=== PATIENT | male | born 1970 | race Caucasian/White ===

== ENCOUNTER 2020-04-03 09:34 | Outpatient (CLI) | payer OTHER, SELFPAY ==
[2020-04-03 09:57] LABS: Basophils Absolute Auto 0.1 K/mm3 (0.0-0.1); Basophils Percent Auto 0.7 % (0.2-1.2); Eosinophils Absolute Auto 0.1 K/mm3 (0-0.3); Eosinophils Percent Auto 1.3 % (0-4.4); Hematocrit 47.9 % (42.0-52.0); Hemoglobin 16.1 g/dL (14.0-18.0); Immature Granulocyte Absolute 0.03 K/mm3 (0.00-0.031); Immature Granulocyte Percent A 0.3 % (0-0.5); Lymphocytes Absolute Auto 1.91 K/mm3 (0.9-3.2); Lymphocytes Percent Auto 19.9 % (18.3-44.2); Mean Corpuscular HGB Conc 33.6 g/dl (32-36); Mean Corpuscular Hemoglobin 29.3 pg (26-34); Mean Corpuscular Volume 87.1 fl (80-100); Mean Platelet Volume 9.5 fl (7.4-10.4); Monocytes Absolute Auto 0.8 K/mm3 (0.1-0.6); Monocytes Percent Auto 8.1 % (2.6-8.5); Neutrophils Absolute Auto 6.7 K/mm3 (1.3-6.7); Neutrophils Percent Auto 69.7 % (45.5-73.1); Platelet Count Result 274 k/mm3 (150-375); White Blood Count 9.6 K/mm3 (4.5-10.0)
[2020-04-03 10:06] LABS: Hemoglobin A1C 5.4 % (<5.7)
[2020-04-03 10:08] LABS: Alanine Aminotransferase 46 U/L (4-50); Albumin Level 4.8 g/dL (3.5-5.1); Alkaline Phosphatase 77 U/L (38-126); Anion Gap 8 mmol/L (8-16); Aspartate Amino Transferase 29 U/L (17-59); Bilirubin,Total 0.6 mg/dL (0.2-1.3); Blood Urea Nitrogen 23 mg/dL (9-20); Calcium 9.4 mg/dL (8.4-10.2); Carbon Dioxide 23 mmol/L (22-30); Chloride 105 mmol/L (98-107); Cholesterol 224 mg/dL (0-200); Estimated Glomerular Filt Rate > 60; Glucose 125 mg/dL (75-110); HDL Direct 51 mg/dL; Potassium 4.4 mmol/L (3.4-5.0); Sodium 136 mmol/L (137-145); Triglycerides 134 mg/dL (<150)
[2020-04-03 10:11] LABS: Add Urine Microscopic? YES; Appearance Urine Clear (Clear); Bilirubin Urine Negative (Negative); Blood Urine Negative (Negative); Color Urine Yellow (Yellow); Glucose Urine UA Negative (Negative); Ketones Urine Negative (Negative); Leukocyte Esterase Ur Negative LEU/UL (NEGATIVE); Mucus Urine Rare /lpf; Nitrate Urine Negative (Negative); Protein Urine 1+ mg/dL (Negative); RBC Urine 0-2 /hpf (0-2); Specific Grav Ur 1.027 (1.001-1.035); Urobilinogen Urine Negative mg/dL (<2.0); WBC Urine 0-3 /hpf (0-3)
[2020-04-03 10:19] LABS: LDL Cholesterol Direct 142 mg/dL
[2020-04-03 10:37] LABS: Free T4 Free Thyroxine 1.11 ng/mL (0.78-2.19); Vitamin D 25 Hydroxy 46.8 ng/mL
[2020-04-03 10:39] LABS: Prostate Specific Antigen 0.6 ng/mL (< OR = 4.0)
[2020-04-08 04:12] LABS: Insulin Level Total 13.4 uIU/mL (<=19.6)
[2020-04-10 12:55] LABS: Homocysteine 10.4 umol/L (<11.4)
[2020-04-11 05:24] LABS: C-Peptide 2.11 ng/mL (0.80-3.85)
== END 2020-04-03 09:35 | disposition home or self-care (01) ==
LOC: ANHLAB 09:37
PROVIDERS: PCP Internal Medicine; Visit Provider Internal Medicine
DX: G47.33 Obstructive sleep apnea (adult) (pediatric) (principal); I10 Essential (primary) hypertension; Z79.899 Other long term (current) drug therapy; Z80.42 Family history of malignant neoplasm of prostate
CPT/HCPCS: 36415; 80053; 80061; 81001; 82306; 83036; 83090; 83525; 84153; 84439; 84443; 84681; 85025; G0103

== ENCOUNTER 2020-04-23 00:23 | Outpatient (CLI) | payer OTHER, SELFPAY ==
[2020-04-23 19:00] LABS: SARS-CoV-2 RNA PCR Negative
== END 2020-04-23 00:24 | disposition home or self-care (01) ==
LOC: ANHCOVIDDT 00:24
PROVIDERS: PCP Internal Medicine; Visit Provider Surgery
DX: Z01.812 Encounter for preprocedural laboratory examination (principal); Z20.828 Contact with and (suspected) exposure to other viral communicable diseases
CPT/HCPCS: 87635; C9803; U0003

== ENCOUNTER 2020-04-23 07:38 | Outpatient (CLI) | payer OTHER, SELFPAY ==
--- NOTE | 2020-04-23 08:28 | ECG_ITS ---
Measurements Intervals [place] Rate: 64 P: 0 ID: 168 QRS: -7 QRSD: 105 T: 1 QT: 417 QTc: 431 Interpretive Statements SINUS RHYTHM VOLTAGE CRITERIA FOR LVH BORDERLINE T WAVE ABNORMALITY- INFERIOR LEADS BASELINE ARTIFACT- I, III, AVL BORDERLINE ECG Electronically Signed On 04-23-2020 9:19:17 CDT by Roderick Quan D.O.
== END 2020-04-23 07:39 | disposition home or self-care (01) ==
PROVIDERS: PCP Internal Medicine; Visit Provider Surgery
DX: Z01.812 Encounter for preprocedural laboratory examination (principal); K43.6 Other and unspecified ventral hernia with obstruction, without gangrene; I10 Essential (primary) hypertension; R94.31 Abnormal electrocardiogram [ECG] [EKG]
CPT/HCPCS: 36415; 86850; 86900; 86901; 93005

== ENCOUNTER 2020-04-25 00:15 | Day surgery (SDC) | payer OTHER, SELFPAY ==
[2020-04-16 11:02] VITALS: BMI 37.3
[2020-04-25] VITALS (12 sets, daily range): BP systolic 111–153; BP diastolic 67–104; PULSE 61–86; RESP 10–20; TEMP 35.8–36.3; O2SAT 92–98
[2020-04-25] MEDS: LACTATED RINGERS 1,000 ML 30 ML IV CONT ×2 (06:40→09:35)
[2020-04-25] MEDS: KETOROLAC 15 MG/ML VIAL (*BKC) IV PUSH ×2 (06:45→10:39)
[2020-04-25] MEDS: ACETAMINOPHEN 500 MG TABLET 1000 MG PO (06:45)
--- NOTE | 2020-04-25 07:09 | WPDANESEPPF ---
Anes - Initial Pre Proc Eval Procedure: Operation Date: 04/25/20 07:30 Proposed Procedures p Robotic Assisted Laparoscopic Periumbilical Ventral Hernia Repair with Mesh - Rebekah Castillo MD Date/Time: 04/25/20 07:09 Surgeon: Rebekah Castillo MD Pre Op Diagnosis: incarcerated dexter umbilical ventral hernia Patient Data Age: 49 Gender: M Height: 5 ft 10 in Weight: 117.93 kg Allergies Allergy/AdvReac Type Severity Reaction Status Date / Time No Known Allergies Allergy Verified 04/16/20 11:03 Home Medications Medication Instructions Recorded Confirmed Type amlodipine 10 mg tablet 10 mg PO DAILY #30 tablet 10/24/19 04/16/20 Rx cetirizine 10 mg disintegrating 10 mg PO DAILY 04/03/20 04/16/20 History tablet fluticasone propionate 50 1 spray NASAL DAILY 04/03/20 04/16/20 History mcg/actuation nasal spray,suspension losartan 50 mg tablet 50 mg PO DAILY #30 tablet 04/03/20 04/16/20 Rx meloxicam 15 mg tablet 15 mg PO BID #60 tablet 04/03/20 04/16/20 Rx rosuvastatin 40 mg tablet 40 mg PO DAILY #30 tablet 04/03/20 04/16/20 Rx Patient hx anesthesia problems: none Family hx anesthesia problems: none PMFSH Past Medical History Medical History (Updated 04/24/20 @ 13:19 by Krzysztof Gibson MD) Benign essential hypertension History of high cholesterol Obstructive sleep apnea Surgical History Surgical History Status post medial meniscal repair Status post repair of hydrocele Family History Family History Father Hypertension Malignant neoplasm of prostate, Onset Age: 70 Sibling Patient's brother is in good health Mother Family history of malignant neoplasm of urinary bladder Social History Social History Smoking status: Never smoker Alcohol intake: current Drinks per week: 7 Additional occupation/education comments: [employer] Spiritual care concerns: No Anes - Eval Final PreProcedure Day of Procedure 04/25/20 07:09 Patient weight: obese Heart: regular rate and rhythm Lungs: clear to auscultation Airway: Mallampati scale (will use glidescope) class III Neurological: alert and oriented Last oral intake: >/= 8 hours ASA classification: III Emergent: no Anesthetic plan: proceed Anesthesia type and monitoring: general ETT and standard monitoring Informed Consent: The patient's anesthetic plan and its attendant risks and benefits were discussed with the patient/family/POA. Questions were solicited and answers provided to the satisfaction of the patient/family/POA.
--- NOTE | 2020-04-25 07:23 | WPDHPUPDATE1 ---
History and Physical Update Update Date/Time: 04/25/20 07:23 History and Physical has been reviewed, including an updated exam of the patient. There are NO changes in the patient's condition. Risks, benefits, and alternatives have been discussed and questions answered. Patient agrees to proceed with procedure.
[2020-04-25] MEDS: ceFAZolin 2 GM/D5W 50 ML 2 GM/50 ML BAG IVPB (07:29)
[2020-04-25] MEDS: BUPIVACAINE/EPINEPHRINE 0.5% 10 ML VIAL 30 ML INFILTRATE (08:14)
--- NOTE | 2020-04-25 09:27 | PM.PROC ---
Procedure Note - Detailed Date of procedure: 04/25/20 Pre-op diagnosis: incarcerated dexter umbilical ventral hernia incarcerated periumbilical ventral hernia Post-op diagnosis: same Procedure performed: robotic assisted repair of incarcerated periumbilical ventral hernia with 15 x 10 cm symbotex mesh in underlay position Description of procedure: The patient was taken the operating room placed in the supine position. After adequate induction of general anesthesia, the patient was prepped and draped in normal sterile fashion. A time-out was then done to verify the patient's identity as well as the procedure being performed. I began by making a 5 mm incision in the left upper quadrant. Through this, a Veress needle was placed into the peritoneal cavity and CO2 gas was insufflated. After adequate pneumoperitoneum was achieved, a 5 mm trocar was placed through this incision. I then placed the laparoscope through this trocar site and under direct visualization I placed a 8 mm port in the left mid abdomen as well as an additional 8 mm port in the left lower abdomen. I then moved the camera to the lower port and replaced the 5 mm port with a 12 mm airport. The robot was then docked to the 3 port sites. I then went to the robotic console. I began by identifying the hernia. A moderate-sized incarcerated hernia was noted in the periumbilical region. Using graspers, I was able to reduce this hernia. The hernia was noted to just contain preperitoneal fat. Once reduced, I also reduced and dissected out the hernia sac. I then closed the approximately 5 cm defect with 0 strata fix suture. I then placed a 15 x 10 cm symbotex mesh into the abdominal cavity. The Vicryl stitch was placed in the middle of the mesh and brought up centering the mesh over the defect. Once this was done, I used 2 0 V lock suture x 2 to circumferentially suture the mesh to the abdominal. Once the mesh was completely sutured in, I was happy with our tension-free repair. The mesh was noted to have good overlap of the defect. At this point, the robot was undocked and all ports were removed. I then closed the 12 mm port site with an 0 Vicryl [id number] suture at the fascial level. All port sites were then closed with 4 O Monocryl subcuticular suture. The patient tolerated the procedure well, is extubated in the operating room postoperative, and will be transferred to the recovery room in stable condition. Anesthesia: GETA Surgeon: Rebekah Castillo MD Estimated blood loss (mL): 10 Drains: No Packing: No Pathology: none sent Complications: No immediate complications Condition: stable Disposition: PACU Findings: incarcerated periumbilical ventral hernia containing fat
[2020-04-25] MEDS: HYDROmorphone HCL INJ (*CRX) 1 MG/ML SYR 0.5 MG IV PUSH ×3 (09:54→10:29)
--- NOTE | 2020-04-25 10:08 | SUR.PHASEI ---
1008- Notified Dr. Gibson patient's blood pressure elevated 150/104 with HR 72. Orders to give 5MG labetalol once IVP and repeat x1 if needed.
[2020-04-25] MEDS: LABETALOL HCL INJ 100 MG/20 ML VIAL IV PUSH (10:23)
--- NOTE | 2020-04-25 10:37 | SUR.PHASEI ---
1037- Called and made Dr. Gibson aware patient has been given 2MG Dilaudid and requiring oxygen 3 liters via nasal cannula and complaining of pain 7/10 on numeric scale. Received orders for 15MG toradol IVP once.
[2020-04-25] MEDS: fentaNYL CITRATE INJ (*CRX) 100 MCG/2 ML VIAL 25 MCG IV PUSH ×10 (11:04→11:22)
[2020-04-25] MEDS: oxyCODONE HCL (*CRX) 5 MG TAB IR PO (11:30)
== END 2020-04-25 12:12 | disposition home or self-care (01) ==
PROVIDERS: PCP Internal Medicine; Visit Provider Surgery
PROC: (CPT 49653; principal; 2020-04-25 07:30)
DX: K43.6 Other and unspecified ventral hernia with obstruction, without gangrene (principal); I10 Essential (primary) hypertension; E78.00 Pure hypercholesterolemia, unspecified; G47.33 Obstructive sleep apnea (adult) (pediatric); E66.9 Obesity, unspecified; Z68.36 Body mass index [BMI] 36.0-36.9, adult
CPT/HCPCS: 49653; S2900; A9270; C1781; J0330; J0690; J1100; J1170; J1885; J2250; J2405; J2704; J2710; J3010; J7030; J7120

== ENCOUNTER → 2020-06-03 15:17 | Outpatient (CLI) | payer OTHER, SELFPAY ==
--- NOTE | ~2020-06-03 | XR_ITS ---
EXAMINATION: XR knee LT min 4V DATE: 06/03/2020 15:44 INDICATION: Left knee pain. TECHNIQUE: 4 views of left knee were obtained. COMPARISON: Left knee radiographs 09/22/2018 FINDINGS: Bone alignment is normal. No fracture. There is mild tricompartmental osteoarthritis. No kn ee joint effusion. IMPRESSION: 1. Mild left knee osteoarthritis. Reviewed, dictated and finalized at location A. MIRROR DEPARTMENT SUPERVISOR
== END ==
PROVIDERS: Visit Provider Internal Medicine
DX: M17.12 Unilateral primary osteoarthritis, left knee (principal)
CPT/HCPCS: 73564

== ENCOUNTER 2020-06-11 07:44 | Outpatient (CLI) | payer SELFPAY ==
--- NOTE | ~2020-06-11 | MR_ITS ---
EXAMINATION: MR knee LT wo/w con DATE: 06/11/2020 09:16 INDICATION: Left knee pain. TECHNIQUE: Magnetic resonance imaging (MRI) of the left knee was performed without intravenous contra st. Sequences included axial PD-weighted FS FSE, coronal PD-weighted FSE and PD-weighted FS FSE, sagi ttal PD-weighted FSE, and sagittal T2-weighted FS FSE. COMPARISON: Left knee radiographs 06/03/2020 FINDINGS: Medial compartment: There is a complex tear of medial meniscus at the junction of the body and posterior horn. There is d eep partial thickness cartilage loss of tibial condyle involving the anterior and medial articular rosas rface with mild subchondral edema-like marrow signal intensity. There is deep partial thickness carti kate loss of femoral condyle involving the posterior articular surface. There is extensive shallow pa rtial-thickness cartilage loss of tibial condyle and femoral condyle. Marginal osteophytes are noted. Lateral compartment: The lateral meniscus is normal. There is deep partial thickness cartilage loss of femoral condyle inv olving the central articular surface. There is cartilage surface irregularity of tibial condyle. Anushka inal osteophytes are noted. Patellofemoral compartment: There is shallow partial-thickness cartilage loss of patellar medial facet and median ridge. There is deep partial thickness cartilage loss of medial trochlea with mild subchondral edema-like marrow sig nal intensity. There is shallow partial-thickness cartilage loss of central and lateral trochlea. Ligaments and tendons: The anterior and posterior cruciate ligaments are normal. There are changes of prior sprains of media l collateral ligament and fibular collateral ligament characterized by thickening and increased signa l intensity proximally. There is mild patellar tendinopathy. Fluid: There is a small knee joint effusion. There is mild deep infrapatellar bursitis. There are ganglion c ysts in Hoffa's fat pad. There is mild prepatellar and superficial infrapatellar bursitis. IMPRESSION: 1. Moderate tricompartmental chondrosis. 2. Tear of medial meniscus. 3. Small knee joint effusion. Reviewed, dictated and finalized at location A. ONAL ACCOUNT MANAGER
[2020-06-11 08:29] LABS: Estimated Glomerular Filt Rate > 60
== END 2020-06-11 07:45 | disposition home or self-care (01) ==
PROVIDERS: PCP Internal Medicine; Visit Provider Internal Medicine
DX: S83.242A Other tear of medial meniscus, current injury, left knee, initial encounter (principal); M25.462 Effusion, left knee
CPT/HCPCS: 73723; A9577

== ENCOUNTER 2021-03-13 11:15 | Outpatient (CLI) | payer OTHER, SELFPAY ==
[2021-03-13 12:05] LABS: Basophils Absolute Auto 0.1 K/mm3 (0.0-0.1); Basophils Percent Auto 0.7 % (0.2-1.2); Eosinophils Absolute Auto 0.2 K/mm3 (0-0.3); Eosinophils Percent Auto 1.8 % (0-4.4); Hemoglobin 14.7 g/dL (14.0-18.0); Immature Granulocyte Absolute 0.02 K/mm3 (0.00-0.031); Immature Granulocyte Percent A 0.2 % (0-0.5); Lymphocytes Absolute Auto 1.94 K/mm3 (0.9-3.2); Lymphocytes Percent Auto 23.2 % (18.3-44.2); Mean Corpuscular HGB Conc 33.4 g/dl (32-36); Mean Corpuscular Hemoglobin 29.1 pg (26-34); Mean Platelet Volume 9.5 fl (7.4-10.4); Monocytes Absolute Auto 0.6 K/mm3 (0.1-0.6); Monocytes Percent Auto 7.5 % (2.6-8.5); Neutrophils Absolute Auto 5.6 K/mm3 (1.3-6.7); Neutrophils Percent Auto 66.6 % (45.5-73.1); Platelet Count Result 282 k/mm3 (150-375); Red Blood Count 5.06 M/mm3 (4.6-6.20); White Blood Count 8.4 K/mm3 (4.5-10.0)
[2021-03-13 12:23] LABS: Alanine Aminotransferase 48 U/L (4-50); Albumin Level 4.8 g/dL (3.5-5.1); Alkaline Phosphatase 68 U/L (38-126); Anion Gap 15 mmol/L (8-16); Aspartate Amino Transferase 33 U/L (17-59); Bilirubin,Total 0.3 mg/dL (0.2-1.3); Blood Urea Nitrogen 12 mg/dL (9-20); Calcium 9.6 mg/dL (8.4-10.2); Carbon Dioxide 24 mmol/L (22-30); Chloride 103 mmol/L (98-107); Cholesterol 171 mg/dL (0-200); Estimated Glomerular Filt Rate > 60; Glucose 108 mg/dL (65-110); HDL Direct 49 mg/dL; Potassium 4.2 mmol/L (3.4-5.0); Sodium 142 mmol/L (137-145); Triglycerides 146 mg/dL (<150)
[2021-03-13 12:34] LABS: LDL Cholesterol Direct 89 mg/dL
[2021-03-13 13:31] LABS: Hemoglobin A1C 5.6 % (<5.7)
[2021-03-13 13:35] LABS: Free T4 Free Thyroxine 1.08 ng/mL (0.78-2.19); Vitamin D 25 Hydroxy 77.7 ng/mL
[2021-03-15 04:33] LABS: Insulin Level Total 10.6 uIU/mL (<=19.6)
[2021-03-15 08:10] LABS: C-Peptide 2.22 ng/mL (0.80-3.85)
== END 2021-03-13 11:16 | disposition home or self-care (01) ==
PROVIDERS: PCP Internal Medicine; Visit Provider Internal Medicine
DX: I10 Essential (primary) hypertension (principal); E78.2 Mixed hyperlipidemia; E55.9 Vitamin D deficiency, unspecified; E66.9 Obesity, unspecified; Z79.899 Other long term (current) drug therapy
CPT/HCPCS: 36415; 80053; 80061; 82306; 83036; 83525; 84439; 84443; 84681; 85025

== ENCOUNTER 2021-07-09 16:17 | Outpatient (CLI) | payer OTHER, SELFPAY ==
[2021-07-09 17:41] LABS: CRP 4.5 mg/dL (<1.0)
[2021-07-09 17:59] LABS: Erythrocyte Sedimentation Rate 6 mm/hr (0-20)
[2021-07-13 17:32] LABS: Complement Total CH50 >60 U/mL (31-60)
== END 2021-07-09 16:18 | disposition home or self-care (01) ==
LOC: ANHLAB 16:20
PROVIDERS: PCP Internal Medicine; Visit Provider Internal Medicine
DX: L50.9 Urticaria, unspecified (principal)
CPT/HCPCS: 36415; 85652; 86003; 86140; 86162

== ENCOUNTER 2021-08-18 12:21 | Outpatient (CLI) | payer OTHER, SELFPAY ==
[2021-08-18 13:29] LABS: Alanine Aminotransferase 21 U/L (4-50); Albumin Level 4.8 g/dL (3.5-5.1); Alkaline Phosphatase 68 U/L (38-126); Anion Gap 9 mmol/L (8-16); Aspartate Amino Transferase 23 U/L (17-59); Bilirubin,Total 0.5 mg/dL (0.2-1.3); Blood Urea Nitrogen 14 mg/dL (9-20); Calcium 9.5 mg/dL (8.4-10.2); Carbon Dioxide 24 mmol/L (22-30); Chloride 101 mmol/L (98-107); Cholesterol 151 mg/dL (0-200); Estimated Glomerular Filt Rate > 60; Glucose 91 mg/dL (65-110); HDL Direct 42 mg/dL; Potassium 4.3 mmol/L (3.4-5.0); Sodium 134 mmol/L (137-145); Triglycerides 108 mg/dL (<150)
[2021-08-18 13:37] LABS: Hemoglobin A1C 4.7 % (<5.7)
[2021-08-18 13:40] LABS: LDL Cholesterol Direct 82 mg/dL
[2021-08-18 13:54] LABS: Prostate Specific Antigen 0.7 ng/mL (< OR = 4.0)
[2021-08-18 14:19] LABS: Free T4 Free Thyroxine 1.12 ng/mL (0.78-2.19)
== END 2021-08-18 12:22 | disposition home or self-care (01) ==
LOC: ANHLAB 12:23
PROVIDERS: PCP Internal Medicine; Visit Provider Internal Medicine
DX: Z12.5 Encounter for screening for malignant neoplasm of prostate (principal); I10 Essential (primary) hypertension; Z80.42 Family history of malignant neoplasm of prostate; Z79.899 Other long term (current) drug therapy; E78.2 Mixed hyperlipidemia
CPT/HCPCS: 36415; 80053; 80061; 83036; 84153; 84439; 84443; G0103

== ENCOUNTER → 2021-08-28 13:27 | Outpatient (CLI) | payer OTHER, SELFPAY ==
--- NOTE | ~2021-08-28 | CT_ITS ---
EXAMINATION: CT abdomen pelvis wo con DATE: 08/28/2021 13:51 INDICATION: Incisional hernia. Umbilical pain. TECHNIQUE: Computed tomography (CT) of the abdomen and pelvis was performed without intravenous contr ast. Automated exposure control and iterative reconstruction technique were employed. Exam dose: 101 0.44 mGy-cm total exam DLP. COMPARISON: None. FINDINGS: The lung bases are clear. Normal heart size. There is coronary artery calcification. No pericardial or pleural effusion. The liver, gallbladder, bile ducts, pancreas, pancreatic duct, spleen, adrenal glands and kidneys are unremarkable. Normal caliber of the abdominal aorta. No intraperitoneal or retroperitoneal or pelvic mass lesion or adenopathy or ascites. Normal appendix. There are scattered diverticula of the left and transverse colon; no CT evidence of diverticulitis. No bowel obstruction, bowel wall thickening, pneumatosis or intraperitoneal free air. The prostate gland is moderately prominent in size. There is moderate diffuse thickening of the urin josé miguel bladder wall. There is a small but widemouth umbilical hernia containing nonobstructed non strangulated loop of sma ll bowel. There is severe degenerative disease and grade 2 anterolisthesis at L5-S1 with associated bilateral L 5 pars interarticularis defects. Diffuse idiopathic skeletal hyperostosis of the lower thoracic and upper lumbar spine. Approximately 6.5 mm osteosclerotic focus of L3 vertebral body, most likely a bone island. Osteoscler otic metastasis as with prostate malignancy is less likely. IMPRESSION: Small widemouth umbilical hernia containing loop of small bowel without strangulation or obstruction Prostate enlargement and moderate thickening of the urinary bladder wall Mild diverticulosis of the colon; no CT evidence of diverticulitis Reviewed, dictated and finalized at Location A. Reviewed, dictated and finalized at location B. ARTIST APPRENTICE IMPRESSION: Small widemouth umbilical hernia containing loop of small bowel wit hout strangulation or obstruction Prostate enlargement and moderate thickening of the urinary bladder wall Mild diverticulosis of the colon; no CT evidence of diverticulitis
== END ==
PROVIDERS: Visit Provider Surgery
DX: K43.2 Incisional hernia without obstruction or gangrene (principal); K42.9 Umbilical hernia without obstruction or gangrene; N40.0 Benign prostatic hyperplasia without lower urinary tract symptoms; N32.9 Bladder disorder, unspecified; K57.90 Diverticulosis of intestine, part unspecified, without perforation or abscess without bleeding
CPT/HCPCS: 74176

== ENCOUNTER 2021-09-16 07:54 | Outpatient (CLI) | payer OTHER, SELFPAY ==
--- NOTE | 2021-09-16 08:02 | ECG_ITS ---
Measurements Intervals [place] Rate: 74 P: 13 NE: 165 QRS: -12 QRSD: 108 T: 4 QT: 395 QTc: 441 Interpretive Statements SINUS RHYTHM COMPARED TO ECG 04/23/2020 08:35:09 NO SIGNIFICANT CHANGES Electronically Signed On 09-16-2021 9:45:58 MATERIALS AND CORROSION ENGINEER by Lopez Medrano M.D.
== END 2021-09-16 07:55 | disposition home or self-care (01) ==
PROVIDERS: PCP Internal Medicine; Visit Provider Surgery
DX: Z01.818 Encounter for other preprocedural examination (principal); K43.2 Incisional hernia without obstruction or gangrene
CPT/HCPCS: 36415; 81479; 86850; 86860; 86870; 86880; 86900; 86901; 86902; 86922; 86970; 86978; 93005

== ENCOUNTER 2021-09-18 01:54 | Day surgery (SDC) | payer OTHER, SELFPAY ==
--- NOTE | 2021-09-12 14:59 | PC.NURSE ---
Report to the Outpatient Waiting Room, entrance under the green pavilion located off [facility], at time 1000 on date 09/18/21. OR Time: 1200. - You and your visitor will be asked a series of questions to screen for COVID 19 for your protection. - A mask is required within the hospital. Preoperative COVID Testing Requirements: No COVID Test needed if: (proof is required; if not received patient will have Rapid Test prior to entry) - Patient has received COVID Vaccine at least 14 days prior to procedure date or - Patient has positive COVID test result within last 90 days of surgery date. COVID Test needed if above criteria is not met If not COVID vaccinated a COVID test must be conducted within 72 hours of surgery and patient is asked to isolate self from time of testing until procedure. You will go to the [facility] for your COVID testing. The [facility] site is located at the corner of [address] [facility]. You will only be called if COVID results are positive and your surgeon may reschedule your elective surgery date. Patients may have clear liquids (water, carbonated beverages, clear teas, apple juice) until 3 hours prior to surgery with a maximum of 20 ounces. - No food from midnight until time of surgery - Infants may have breast milk until 4 hours before surgery, formula 6 hours prior to surgery. - Children will be allowed to drink immediately following surgery. If applicable, please bring a bottle or sippy cup to assist with drinking. Juice, water, soda, and popsicles are readily available. For infants on formula, please bring formula the day of surgery. Pacifiers are allowed. Take the following medications with a SIP of water the morning of surgery: Amlodipine Medications to discontinue per physician :supplements or vitamins 3 days prior (09/15/21) Date to take last dose Please no make-up, nail yakut, hairspray, perfume, deodorant, or body powder the day of surgery. No jewelry (including any body piercings) or valuables the day of surgery, leave them at home. Please take a shower or bath the night before, or the morning of, surgery with an antibacterial soap. Wear comfortable, loose fitting clothing. Children are encouraged to wear pajamas. - Jewelry must be removed prior to entering the operating room. Rings and piercings that are not removed may be cut off. - The hospital will not accept responsibility for valuables. - Please leave all valuables, including medications, at home the day of surgery. If you are going home after surgery, a licensed route sales delivery driver must drive you home. - NO public transportation without another adult. - We recommend that an adult stay with you for 24 hours following discharge. - We also recommend that you do not drive, make important decision, drink alcoholic beverages, or take any drugs that were not prescribed by your health care provider for at least 24 hours after your discharge time. For Pediatric surgeries, we recommend two adults accompany the child home (only one inside the building at this time). One visitor will be allowed to accompany the patient into the hospital. Patients visitor will be instructed to remain with patient at all times or leave the building. We will allow the visitor to come back to the postoperative area when patient is ready. Follow any additional instructions given to you from your surgeon. Telephone instructions given to patient and asked if any additional questions and then verbalized understanding. Patient advised to call surgeon office or pre surgery nurse liaison [phone] if any additional questions.
[2021-09-12 15:06] VITALS: BMI 30.1
[2021-09-18] VITALS (9 sets, daily range): BP systolic 110–148; BP diastolic 69–94; PULSE 71–83; RESP 12–19; TEMP 36.4–36.6; O2SAT 97–99; BMI 30.3
[2021-09-18] MEDS: LACTATED RINGERS 1,000 ML 30 ML IV CONT ×3 (11:00→15:00)
[2021-09-18] MEDS: KETOROLAC 15 MG/ML VIAL (*BKC) IV PUSH (11:00)
[2021-09-18] MEDS: ACETAMINOPHEN 500 MG TABLET 1000 MG PO (11:00)
--- NOTE | 2021-09-18 11:14 | WPDANESEPPF ---
Anes - Initial Pre Proc Eval Procedure: Operation Date: 09/18/21 12:00 Proposed Procedures p Robotic Assisted Recurrent Incisional Hernia Repair with Mesh - Rebekah Castillo MD Date/Time: 09/18/21 11:14 Surgeon: Rebekah Castillo MD Pre Op Diagnosis: Recurrent Inc Hernia Patient Data Age: 51 Gender: M Height: 1.78 m Weight: 95.25 kg Allergies Allergy/AdvReac Type Severity Reaction Status Date / Time nut - unspecified Allergy Severe Anaphylaxis Verified 09/18/21 11:05 scallops Allergy Severe Anaphylaxis Verified 09/18/21 11:05 Home Medications Medication Instructions Recorded Confirmed Type coenzyme Q10 75 mg capsule 75 mg PO DAILY 03/13/21 09/12/21 History multivitamin 1 tablet PO DAILY 03/13/21 09/12/21 History turmeric root extract 500 mg 500 mg PO DAILY 03/13/21 09/12/21 History capsule semaglutide (weight loss) 2.4 See Rx Instructions .ROUTE 09/01/21 09/12/21 Rx mg/0.75 mL subcutaneous pen .COMPLEX #3 ml injector amlodipine 10 mg tablet See Rx Instructions .ROUTE 09/02/21 09/12/21 Rx .COMPLEX #90 tablet losartan 50 mg tablet See Rx Instructions .ROUTE 09/08/21 09/12/21 Rx .COMPLEX #30 tablet rosuvastatin 40 mg tablet See Rx Instructions .ROUTE 09/08/21 09/12/21 Rx .COMPLEX #30 tablet aspirin [Adult Low Dose Aspirin] 81 mg PO DAILY 09/12/21 09/12/21 History diclofenac sodium 75 mg PO DAILY PRN 09/12/21 09/12/21 History Patient hx anesthesia problems: none Family hx anesthesia problems: none Results Review: All pre-operative results and documents have been reviewed as part of the pre-operative evaluation. 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 Mixed hyperlipidemia Obstructive sleep apnea On rn long term care drug therapy KAREN on CPAP Periumbilical hernia Prostate cancer screening Urticaria Weight loss Surgical History Surgical History History of hernia repair 04/25/2020: incarcerated periumbilical ventral hernia repair Status post medial meniscal repair Status post repair of hydrocele Family History Family History Father Hypertension Malignant neoplasm of prostate, Onset Age: 70 Sibling Patient's brother is in good health Mother Family history of malignant neoplasm of urinary bladder Social History Social History Smoking status: Never smoker Alcohol intake: current Drinks per week: 10 Alcohol use details: Daily Substance use: never Substance use type: does not use Living arrangements: with family Additional occupation/education comments: [employer] Spiritual care concerns: No Anes - Eval Final PreProcedure Day of Procedure 09/18/21 11:14 Patient weight: obese Heart: regular rate and rhythm Lungs: clear to auscultation Airway: Mallampati scale class III Neurological: alert and oriented Last oral intake: >/= 8 hours ASA classification: III Emergent: no Anesthetic plan: proceed Anesthesia type and monitoring: general ETT and standard monitoring Results Review: All pre-operative results and documents have been reviewed as part of the pre-operative evaluation. Informed Consent: The patient's anesthetic plan and its attendant risks and benefits were discussed with the patient/family/POA. Questions were solicited and answers provided to the satisfaction of the patient/family/POA.
--- NOTE | 2021-09-18 11:53 | WPDHPUPDATE1 ---
History and Physical Update Update Date/Time: 09/18/21 11:53 History and Physical has been reviewed, including an updated exam of the patient. There are NO changes in the patient's condition. Risks, benefits, and alternatives have been discussed and questions answered. Patient agrees to proceed with procedure. CT reviewed and shows recurrent periumbilical hernia. Abd - S, sl dist, mild TTP periumbilical bulge. Will proceed c robotic assisted repair recurrent ventral hernia
[2021-09-18] MEDS: ceFAZolin 2 GM/D5W 50 ML 2 GM/50 ML BAG IVPB (12:05)
[2021-09-18] MEDS: BUPIVACAINE/EPINEPHRINE 0.25% 10 ML VIAL 30 ML INFILTRATE (12:30)
[2021-09-18] MEDS: fentaNYL CITRATE INJ (*CRX) 100 MCG/2 ML VIAL 25 MCG IV PUSH ×8 (14:14→14:30)
--- NOTE | 2021-09-18 14:20 | W.PM.PROC2 ---
Procedure Note - Detailed Date of Procedure 09/18/21 Pre-op Diagnosis Recurrent periumbilical ventral hernia Post-op Diagnosis Same Procedure Performed Robotic assisted repair recurrent periumbilical ventral hernia with mesh, removal of previously placed mesh Surgeon Rebekah Castillo MD Anesthesia General Indications 51-year-old male with recurrent periumbilical ventral hernia Findings well incorporated previously placed mesh, recurrent periumbilical ventral hernia lateral to previously placed mesh Description of Procedure The patient was taken the operating room placed in the supine position. After adequate induction of general anesthesia, the patient was prepped and draped in normal sterile fashion. A time-out was then done to verify the patient's identity as well as the procedure being performed. I began by making a 12 mm incision in the left upper quadrant. Through this, a Veress needle was placed into the peritoneal cavity and CO2 gas was insufflated. After adequate pneumoperitoneum was achieved, a 8 mm optiview trocar was placed through this incision. I then placed the laparoscope through this trocar site and under direct visualization I placed a 8 mm port in the left mid abdomen as well as an additional 8 mm port in the left lower abdomen. I then moved the camera to the lower port and replaced the upper 8 mm port with a 12 mm airport. The robot was then docked to the 3 port sites. I then went to the robotic console. I began by identifying the hernia. A moderate-sized incarcerated hernia was noted in the right periumbilical region, lateral to the previously placed mesh. The mesh was otherwise well incoporated, although the right lateral edge seemed to be from the abdominal wall. Given this finding, I decided to remove the previously placed mesh. This was done with careful dissection and I was able to find a clear plane between the abdominal wall and mesh. There was also some omental adhesions to the mesh that was taken down. Once the mesh was completely removed, the mesh was extracted through the 12 mm port. The hernia was noted to contain a large amount of preperitoneal fat and omentum. Once reduced, I also reduced and dissected out the hernia sac. I then closed the approximately 2 cm defect with 0 strata fix suture. I then placed a 6x4 [address] mesh into the abdominal cavity. The positional stitch was placed in the middle of the mesh and brought up centering the mesh over the defect. Once this was done, I used 2 0 V lock suture x 2 to circumferentially suture the mesh to the abdominal. Once the mesh was completely sutured in, I was happy with our tension-free repair. The mesh was noted to have good overlap of the defect. I then removed the positioning device. At this point, the robot was undocked and all ports were removed. I then closed the 12 mm port site with an 0 Vicryl [id number] suture at the fascial level. All port sites were then closed with 4 O Monocryl subcuticular suture. The patient tolerated the procedure well, was extubated in the operating room postoperative, and will be transferred to the recovery room in stable condition. Implants 6x4 Ventralight mesh Estimated Blood Loss 40 Drains No Packing No Pathology None sent Complications No immediate complications Condition Stable Disposition PACU
[2021-09-18] MEDS: HYDROmorphone HCL INJ (*CRX) 1 MG/ML SYR 0.5 MG IV PUSH ×4 (14:35→14:50)
[2021-09-18] MEDS: MIDAZOLAM HCL (*CRX) 2 MG/2 ML VIAL 1 MG IV PUSH ×2 (15:00→15:37)
== END 2021-09-18 16:10 | disposition home or self-care (01) ==
PROVIDERS: PCP Internal Medicine; Visit Provider Surgery
PROC: (CPT 49656; principal; 2021-09-18 12:00)
DX: K43.2 Incisional hernia without obstruction or gangrene (principal); E78.00 Pure hypercholesterolemia, unspecified; G47.33 Obstructive sleep apnea (adult) (pediatric); E78.2 Mixed hyperlipidemia; L50.9 Urticaria, unspecified; Z79.82 Long term (current) use of aspirin; E66.9 Obesity, unspecified; Z68.30 Body mass index [BMI] 30.0-30.9, adult; I10 Essential (primary) hypertension
CPT/HCPCS: 49656; S2900; 36415; 81479; 86850; 86860; 86870; 86880; 86900; 86901; 86922; 86970; 86978; 93005; A9270; C1781; J0690; J1100; J1170; J1885; J2250; J2405; J2704; J2710; J3010; J7030; J7120

== ENCOUNTER → 2022-10-08 15:04 | Outpatient (CLI) | payer OTHER, SELFPAY ==
--- NOTE | ~2022-10-08 | MR_ITS ---
MRI of the right knee Clinical history: Injury Technique: Coronal proton density and proton density-weighted images, sagittal proton-density and T2 fat-sat images, and axial proton-density fat-saturated images were acquired. Findings: Anterior and posterior cruciate ligaments are intact. Medial collateral ligament and the la teral collateral ligament complex are intact. Popliteus tendon is intact. There is probable peripheral corner tear of the posterior horn of the medial meniscus. No lateral men iscal tear identified. Articular cartilage in the medial lateral compartments is well preserved. There is focal moderate to high-grade chondromalacia along the medial femoral trochlea with focal subchondral reactive marrow ed mich. Patellar articular cartilage is well preserved. Extensor mechanism is intact. No significant joint effusion. No Lopez's cyst. Impression: Probable peripheral corner tear of the posterior horn of the medial meniscus. Focal moderate to high-grade chondromalacia the femoral trochlea medially. Reviewed, dictated and finalized at [facility]. Impression: Probable peripheral corner tear of the posterior horn of the medial meniscus. Focal moderate to high-grade chondromalacia the femoral trochlea medially.
== END ==
PROVIDERS: PCP Internal Medicine; Visit Provider Internal Medicine
DX: M25.561 Pain in right knee (principal); S89.91XA Unspecified injury of right lower leg, initial encounter; M94.261 Chondromalacia, right knee
CPT/HCPCS: 73721

== ENCOUNTER → 2023-01-20 07:57 | Outpatient (CLI) | payer OTHER, SELFPAY ==
--- NOTE | ~2023-01-20 | MR_ITS ---
MRI of the right knee Clinical history: Pain, prior arthroscopy Technique: Coronal proton density and proton density-weighted images, sagittal proton-density and T2 fat-sat images, and axial proton-density fat-saturated images were acquired. COMPARISON: 10/08/2022 Findings: Anterior and posterior cruciate ligaments are intact. Medial collateral ligament and the la teral collateral ligament complex are intact. Popliteus tendon is intact. There is probable horizontal/oblique tear of the posterior horn of the medial meniscus. No lateral me niscal tear seen. There is mild chondromalacia at the medial and lateral joint lines. There is focal moderate chondroma lacia the medial aspect of the femoral trochlea. There is mild chondromalacia at the patellar apex. Extensor mechanism is intact. Small joint effusion present. No Lopez's cyst. Impression: Probable horizontal/oblique tear of the posterior horn of the medial meniscus. Mild chondromalacia in the knee overall, as detailed above. Reviewed, dictated and finalized at location . Impression: Probable horizontal/oblique tear of the posterior horn of the medial meniscus. Mild chondromalacia in the knee overall, as detailed above.
== END ==
PROVIDERS: PCP Internal Medicine; Visit Provider Orthopaedic Surgery
DX: Z47.89 Encounter for other orthopedic aftercare (principal); M94.261 Chondromalacia, right knee
CPT/HCPCS: 73721

== ENCOUNTER 2023-04-15 07:32 | Outpatient (CLI) | payer OTHER, SELFPAY ==
[2023-04-15 08:18] LABS: Basophils Percent Auto 0.7 % (0.2-1.2); Eosinophils Absolute Auto 0.1 K/mm3 (0-0.3); Eosinophils Percent Auto 2.2 % (0-4.4); Hematocrit 45.5 % (42.0-52.0); Immature Granulocyte Absolute 0.01 K/mm3 (0.00-0.031); Immature Granulocyte Percent A 0.2 % (0-0.5); Lymphocytes Absolute Auto 1.46 K/mm3 (0.9-3.2); Lymphocytes Percent Auto 26.5 % (18.3-44.2); Mean Corpuscular Hemoglobin 29.1 pg (26-34); Mean Corpuscular Volume 88.3 fl (80-100); Mean Platelet Volume 9.7 fl (7.4-10.4); Monocytes Absolute Auto 0.6 K/mm3 (0.1-0.6); Monocytes Percent Auto 10.9 % (2.6-8.5); Neutrophils Absolute Auto 3.3 K/mm3 (1.3-6.7); Neutrophils Percent Auto 59.5 % (45.5-73.1); Platelet Count Result 223 k/mm3 (150-375); Red Blood Count 5.15 M/mm3 (4.6-6.20); Red Cell Distribution Width 12.3 % (11.5-14.5); White Blood Count 5.5 K/mm3 (4.5-10.0)
[2023-04-15 08:56] LABS: Alanine Aminotransferase 42 U/L (6-50); Albumin Level 4.6 g/dL (3.5-5.1); Alkaline Phosphatase 63 U/L (38-126); Anion Gap 10 mmol/L (8-16); Aspartate Amino Transferase 29 U/L (17-59); Bilirubin,Total 0.6 mg/dL (0.2-1.3); Blood Urea Nitrogen 13 mg/dL (9-20); Calcium 9.1 mg/dL (8.4-10.2); Carbon Dioxide 21 mmol/L (22-30); Chloride 107 mmol/L (98-107); Cholesterol 167 mg/dL (0-200); Estimated Glomerular Filt Rate > 60; Glucose 114 mg/dL (65-110); HDL Direct 37 mg/dL; Potassium 4.3 mmol/L (3.4-5.0); Sodium 138 mmol/L (137-145); Triglycerides 102 mg/dL (<150)
[2023-04-15 09:07] LABS: LDL Cholesterol Direct 102 mg/dL
[2023-04-15 09:27] LABS: Free T4 Free Thyroxine 1.38 ng/mL (0.78-2.19); Vitamin D 25 Hydroxy 85.6 ng/mL
[2023-04-15 10:16] LABS: Hemoglobin A1C 5.2 % (<5.7)
== END 2023-04-15 07:33 | disposition home or self-care (01) ==
LOC: ANHLAB 07:33
PROVIDERS: PCP Internal Medicine; Visit Provider Internal Medicine
DX: Z00.00 Encounter for general adult medical examination without abnormal findings (principal); I10 Essential (primary) hypertension; E78.2 Mixed hyperlipidemia; R53.83 Other fatigue; Z79.899 Other long term (current) drug therapy
CPT/HCPCS: 36415; 80053; 80061; 82306; 83036; 84439; 84443; 85025

== ENCOUNTER 2023-12-01 10:06 | Outpatient (CLI) | payer OTHER, SELFPAY ==
[2023-12-01 10:42] LABS: Alanine Aminotransferase 44 U/L (6-50); Alkaline Phosphatase 60 U/L (38-126); Anion Gap 7 mmol/L (4-12); Aspartate Amino Transferase 28 U/L (17-59); Bilirubin,Total 0.5 mg/dL (0.2-1.3); Blood Urea Nitrogen 18 mg/dL (9-20); Calcium 9.1 mg/dL (8.4-10.2); Carbon Dioxide 26 mmol/L (22-30); Chloride 107 mmol/L (98-107); Cholesterol 165 mg/dL (0-200); Estimated Glomerular Filt Rate > 60; Glucose 93 mg/dL (65-110); HDL Direct 56 mg/dL; Potassium 4.2 mmol/L (3.4-5.0); Sodium 140 mmol/L (137-145); Triglycerides 101 mg/dL (<150)
[2023-12-01 10:53] LABS: LDL Cholesterol Direct 91 mg/dL
[2023-12-01 10:55] LABS: Appearance Urine Clear (Clear); Bilirubin Urine 1+ (Negative); Blood Urine Negative (Negative); Color Urine Dark Yellow (Yellow); Glucose Urine UA Negative (Negative); Ketones Urine Trace mg/dL (Negative); Leukocyte Esterase Ur Negative LEU/UL (Negative); Nitrate Urine Negative (Negative); Protein Urine Negative (Negative); pH Urine 6.5 (5.0-9.0)
[2023-12-01 11:12] LABS: Specific Grav Ur 1.032 (1.001-1.035)
[2023-12-01 11:13] LABS: Add Urine Microscopic? NO
== END 2023-12-01 10:07 | disposition home or self-care (01) ==
LOC: ANHLAB 10:07
PROVIDERS: PCP Internal Medicine; Visit Provider Internal Medicine
DX: E78.2 Mixed hyperlipidemia (principal); Z79.899 Other long term (current) drug therapy; I10 Essential (primary) hypertension
CPT/HCPCS: 36415; 80053; 80061; 81003

== ENCOUNTER 2024-01-17 12:40 | Outpatient (CLI) | payer OTHER, SELFPAY ==
--- NOTE | ~2024-01-17 | MR_ITS ---
MRI of the right elbow Clinical history strain or muscle TECHNIQUE: Proton-density and proton-density fat-sat images were acquired in the axial, coronal, and sagittal planes. FINDINGS: Ulnar collateral ligament is intact. Radial collateral ligament and the lateral ulnar colla teral ligament are intact. There is mild tendinosis of the common extensor tendon origin. Common flex or tendon origin intact. Bone marrow signals are unremarkable. No joint effusion at the elbow. No articular abnormality of the elbow. There is complete rupture of the distal biceps tendon, which is retracted by at least approximately 5 cm. Retracted tendon edges weighted, with surrounding soft tissue edema and fluid. Brachialis and tr iceps tendons are intact. No soft tissue mass or fluid collection evident otherwise. IMPRESSION: Complete rupture of the distal biceps tendon with associated retraction, as detailed above. Reviewed, dictated and finalized at location . IMPRESSION: Complete rupture of the distal biceps tendon with associated retraction, as det teri above.
--- NOTE | ~2024-01-17 | MR_ITS ---
Procedure: MR shoulder RT wo con Ordering provider: Giuseppe Archuleta MD History: . S42.219A - Strain of muscle, fascia and tendon of other p... . Comparison: Technique: MRI right shoulder without contrast. FINDINGS: ACROMIOCLAVICULAR JOINT: Mild arthropathy. ROTATOR CUFF: The supraspinatus tendon is slightly increased in signal on T2-weighted images suggesti ve of tendinosis versus partial tear. No subacromial subdeltoid bursitis. No evidence for subcoracoid impingement or subscapularis tendinosis or tear. PROXIMAL BICEPS TENDON: The proximal biceps tendon and biceps labral complex are normal. The rotator interval is normal as visualized without intraarticular contrast. INFERIOR GLENOHUMERAL LIGAMENT COMPLEX: Normal anterior and posterior bands. Normal axillary pouch. LABRUM: The superior labrum is normal The anteroinferior labrum shows irregularity with slightly john ght signal which is suggestive of a tear. Follow-up advised. . The posterior labrum is normal. BONES: Mild degenerative osseous cysts are seen involving the greater tuberosity of the humerus. Mar row signal is otherwise normal. GLENOHUMERAL JOINT SPACE: The glenohumeral joint space is narrowed with irregularity of the articular cartilage.. No joint effusion. SUPERFICIAL AND DEEP SOFT TISSUES: Otherwise, normal. No paralabral cyst. IMPRESSION: Osteoarthritic changes of the glenohumeral and acromioclavicular joints. Bright signal in the supraspinatus tendon suggestive of tendinosis versus partial tear. irregularity with slightly bright signal which is suggestive of a tear in the anterior inferior labru m. Follow-up advised. Reviewed, dictated and finalized at location A. IMPRESSION: Osteoarthritic changes of the glenohumeral and acromioclavicular joints. Bright signal in the supraspinatus tendon suggestive of tendinosis versus parti al tear. irregularity with slightly bright signal which is suggestive of a tear in the a nterior inferior labrum. Follow-up advised.
== END 2024-01-17 12:41 ==
PROVIDERS: PCP Internal Medicine; Visit Provider Internal Medicine
DX: S46.211A Strain of muscle, fascia and tendon of other parts of biceps, right arm, initial encounter (principal); M25.521 Pain in right elbow; M25.511 Pain in right shoulder; M19.011 Primary osteoarthritis, right shoulder
CPT/HCPCS: 73221

== ENCOUNTER 2024-12-15 09:37 | Outpatient (CLI) | payer OTHER, SELFPAY ==
--- OUTSIDE RECORDS SUMMARY | 2024-12-15 09:40 | XMS_ITS | Clinical Summary ---
Author Organization [facility] Address [address] [place] [id number] Care Team Providers Care Design Transferrer Name Role Phone Giuseppe Archuleta MD Primary Care Provider [phone] Allergies No known active allergies Medications fish oil-dha-epa 1,200-144-216 mg capsuleIndicatio ns:Heart health Take 1,200 mg by mouth every morning Active coenzyme Q10 10 mg capsuleIndicatio ns:Help cholesterol med work better Take 1 capsule (10 mg total) by mouth every morning Active EPINEPHrine 0.3 mg/0.3 mL auto-injection syringeIndicatio ns:Anaphylaxis Inject 0.3 mL (0.3 mg total) into the muscle as instructed daily as needed for anaphylaxis Never had to use 1 Active losartan (COZAAR) 50 mg tabletIndication s:hypertension Take 1 tablet (50 mg total) by mouth every morning 3 Active Mounjaro 15 mg/0.5 mL pen injectorIndicati ons:weight loss Inject 15 mg under the skin once a week Fridays 4 Active amLODIPine (NORVASC) 10 mg tabletIndication s:hypertension Take 1 tablet (10 mg total) by mouth every morning 4 Active rosuvastatin (CRESTOR) 40 mg tabletIndication s:hyperlipidemia Take 1 tablet (40 mg total) by mouth every morning 4 Active fexofenadine (PAWAN) 180 mg tabletIndication s:Seasonal Allergic Rhinitis Take 1 tablet (180 mg total) by mouth every morning Active fluticasone propionate (FLONASE) 50 mcg/actuation nasal sprayIndications :Allergic Rhinitis Administer 1 spray into each nostril every morning Active multivitamin tabletIndication s:Vitamin Deficiency Prevention Take 1 tablet by mouth every morning Active aspirin 81 mg enteric coated tabletIndication s:primary prevention of coronary heart disease Take 1 tablet (81 mg total) by mouth every morning Active oxyCODONE (ROXICODONE) 5 mg immediate release tabletIndication s:Pain Take 1 tablet (5 mg total) by mouth every 4 (four) hours as needed for pain 30 tablet 4 Active docusate sodium (COLACE) 100 mg capsuleIndicatio ns:constipation Take 1 capsule (100 mg total) by mouth 2 (two) times a day for 5 days 10 capsule 4 Active Active Problems Problem Noted Date Diagnosed Date Rupture of right distal biceps tendon 01/19/2024 Complex tear of lateral meni scus of left knee as current injury 09/29/2018 Overview (09/29/2018): Added automatically from request for surgery [id number] Complex tear of medial menis cus of left knee as current injury 09/29/2018 Overview (09/29/2018): Added automatically from request for surgery [id number] Snoring 04/28/2013 Surgical History Surgery Date Site/Laterality Comments HYDROCELE EXCISION / REPAIR 07/12/2008 - 07/11/2009 NASAL SEPTUM SURGERY 10/10/2015 SEPTOPLASTY-TURBINATE REDUCTION; Surgeon: Mike Staley DO; Location: [facility]; Service: COLONOSCOPY 07/12/2021 - 07/11/2022 KNEE ARTHROSCOPY 10/21/2018 Left LEFT KNEE ARTHROSCOPY PARTIAL MEDIAL MENISCECTOMY; CHONDROPLASTY PATELLA, LATERAL FEMORAL CONDYLE, TROCHLEA KNEE ARTHROSCOPY Right x2 with meniscal tear Medical History Medical History Date Comments Arthritis Hypercholesteremia Hypertension Poison doron 10/2018 neck, [place] wrist, left ankle KAREN (obstructive sleep apnea) ca n not tolerate CPAP/ uses occasionally Family History Medical History Relation Name Comments Arthritis Brother Hypertension Brother Arthritis Father Cancer Father Hypertension Father Arthritis Mother Cancer Mother Relation Name Status Comments Brother Father Mother Social History Tobacco Use Types Packs/Day Years Used Date Smoking Tobacco: Never Passive Smoke Exposure: Past Smokeless Tobacco: Never Tobacco Cessation:Counseling Given: Not Answered Passive Exposure Comments:Mom smoked Alcohol Use Standard Drinks/Week Comments Yes 3 (1 standard drink = 0.6 oz pur e alcohol) AUDIT-C Answer Date Recorded Q1: How often do you have a drink containing alc ohol? 2-3 times a week 01/20/2024 Q2: How many drinks containi ng alcohol do you have on a typical day when you are drinking? 3 or 4 01/20/2024 Q3: How often do you have si x or more drinks on one occasion? Never 01/20/2024 Personal Safety Answer Date Recorded Have you ever been in or are you currently in a harmful physical or emotional relationship or is someone making you feel afraid or unsafe? 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 Gender Identity Not on file Sexual Orientation Not on file Obstetrics History Last Filed Vital Signs Vital Sign Reading Time Taken Comments Blood Pressure 154/94 01/28/2024 11:10 AM CDT Pulse 70 01/28/2024 11:20 AM CDT Temperature 36.3 C (97.3 F) 01/28/2024 10:45 AM CDT Respiratory Rate 13 01/28/2024 11:20 AM CDT Oxygen Saturation 94% 01/28/2024 11:20 AM CDT Inhaled Oxygen Concentration - - Weight 95.1 kg (209 lb 9.6 oz) 01/28/2024 8:20 A M CDT Height 177.8 cm (5' 10) 01/28/2024 8:20 AM CDT Body Mass Index 30.07 01/28/2024 8:20 AM CDT Plan of Treatment Health Maintenance Due Date Last Done Comments Depression Screening 1970 Hepatitis C Screening 1970 Prostate Cancer Screening-PSA 1968 DTaP/Tdap/Td Vaccine (1 - Tdap) 1979 Hepatitis B Screening 1986 Regular Well Visit/Exam 18-64 1986 Zoster Vaccine (1 of 2) 2018 Colon Cancer Screening-Colonoscopy 01/18/2020 01/17/2010 Influenza Vaccine (Season Ended) 2025 04/13/2019, 04/14/2016, 04/16/2015, Additional history exists Colon Cancer Screening-CT Colonography Discontinued 01/17/2010 Colon Cancer Screening-DNA Stool Discontinued 01/17/2010 Colon Cancer Screening-FIT Discontinued 01/17/2010 Colon Cancer Screening-Sigmoidoscopy Discontinued 01/17/2010 Pneumococcal vaccine <65 Aged Out No longer eligible based on patient's age to complete this topic Medical Devices Implanted Type Area Postal Support Employee Device Identifier Shelf Expiration Date Model / Serial / Lot [employer] Button Drill Linen Folder Screw Kit Arthroscopic Fixation Sterile Ar-2260 - [id number] Implanted:Qty: 1 on 01/28/2024 by Fernando Ramos MD at [facility] Right: Arm [employer] 09/08/2028 AR-2260 / / [id number] Procedures Procedure Name Priority Date/Time Associated Diagnosis Comments COLONOSCOPY 01/17/2010 12:00 AM CDT from Last 3 Months or Most Recently Relevant to Health Maintenance Results * COLONOSCOPY (01/17/2010 12:00 AM CDT) Anatomical Region Laterality Modality Other Narrative 01/17/2010 12:00 AM CDT Ordered by an unspecified provider. Procedure Note Provider, MD Trupti - 01/17/2010 12:00 AM CDT PROCEDURE REPORT Patient: ROMAN DAVILA Account: [id number] Room No: : 1970 Patient Type: [facility] Attend.: Hector Barbosa M.D. Admit Date: 01/17/2010 Dict.: Hector Barbosa M.D. Disch. Date:01/17/2010 NAME OF PROCEDURE: Colonoscopy. HISTORY: This is a 39-year-old male with a prior history of colonicpolyps and a family history of colon cancer who also has significant reflux symptomatology who presents for evaluation of the upper as well as thelower GI tracts. PHYSICAL EXAMINATION: GENERAL: Well developed male. LUNGS: Clear. CARDIOVASCULAR: Unremarkable. PROCEDURE: Colonoscopy was performed with a Classting video endoscope.On digital exam, no abnormalities were palpable. We inserted the endoscopeand advanced it to the cecum. The colon was well prepped and visualized.We carefully searched the colonic mucosa, could find no evidence ofinflammation or neoplasia anywhere through the length of the bowel. The patienttolerated the procedure without difficulty. POSTOPERATIVE DIAGNOSIS: Normal colonoscopy. PLAN: Surveillance in five years in light of personal and familyhistory. Hector Barbosa M.D. /cholot TD: 01/22/2010 09:41 CC: Dr. Melo Fletcher PROCEDURE REPORT Authenticated by Hector Barbosa MD On 01/23/2010 09:18:36 AM Historical Provider MD ENDOSCOPY PROCEDURES Mendy l Result from Last 3 Months or Most Recently Relevant to Health Maintenance Insurance [facility] [place] [id number] [facility] Care Teams Design Transferrer Relationship Specialty Start Date End Date Giuseppe Archuleta MD [address] [place] [address] PCP - General 06/13/20
--- OUTSIDE RECORDS SUMMARY | 2024-12-15 09:40 | XMS_ITS | Continuity of Care Document ---
Author Organization [facility] Address [address] [place] [address] [address] [place] [address] Phone Care Team Providers Care Putty And Caulking Supervisor Name Role Phone Cloud OD, Sandip Unavailable Unavailable Procedures Procedure Date Eye Exam & Treatment Refraction Advance Directives Directive Yes / No Effective Date File Name No Information Encounters Encounter Description Practice Location Reason(s) For Visit Diagnoses Date Provider Providers Copied on Encounter Formerly [facility], [address] [place] [address] [address], [place], [place], [id number], [place] tel:[phone] [facility] No Information 0 2-200 9 Cloud OD Sandip. [address] , [address], [place], [address], [place]. tel:[phone] Family History Family Member Type Diagnosis Age At Onset No Information Payers Payer name Insurance type Covered constitution party ID Authorarsenioa jono(s) [facility] 09 [id number] Social History Type Description Quantity Date Captured [...]
--- OUTSIDE RECORDS SUMMARY | 2024-12-15 09:40 | XMS_ITS | Referral Summary ---
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 Gender Identity Not on file Sexual Orientation Not on file Last Filed Vital Signs Vital Sign Reading [...] 01/28/2024 8:20 AM CDT Plan of Treatment Not on file Medical Devices Implanted Type Area Health Physicist Device Identifier Shelf Expiration Date Model / Serial / Lot [employer] Button Drill Box Toe Maker Screw Kit Arthroscopic Fixation Sterile Ar-2260 - [id number] Implanted:Qty: 1 on 01/28/2024 by Fernando Ramos MD at [facility] Right: Arm [employer] 09/08/2028 AR-2260 / / [id number] Procedures Procedure Name Priority Date/Time Associated Diagnosis Comments COLONOSCOPY 01/17/2010 12:00 AM CDT from Last 3 Months or Most Recently Relevant to Health Maintenance Results * COLONOSCOPY (01/17/2010 12:00 AM CDT) Anatomical Region Laterality Modality Other Narrative 01/17/2010 12:00 AM CDT Ordered by an unspecified provider. Procedure Note ProviderTrupti MD - 01/17/2010 12:00 AM CDT PROCEDURE REPORT Patient: COREY DAVILA Account: [id number] Room No: : 1970 Patient Type: [facility] Attend.: Hector Barbosa M.D. Admit Date: 01/17/2010 [...] Unremarkable. PROCEDURE: Colonoscopy was performed with a AzureBooker video endoscope.On digital exam, no abnormalities were [...] of personal and familyhistory. Hector Barbosa M.D. /pancho TD: 01/22/2010 09:41 CC: Dr. Melo Fletcher PROCEDURE REPORT Authenticated by Hector Barbosa MD On 01/23/2010 09:18:36 AM Historical Provider ENDOSCOPY PROCEDURES Mendy l Result from Last 3 Months or Most Recently Relevant to Health Maintenance Insurance [facility]US [facility] Care Teams Outsole Leveler Relationship Specialty Start Date End Date Giuseppe Archuleta MD [address] [place] [address] PCP - General 06/13/20
--- OUTSIDE RECORDS SUMMARY | 2024-12-15 09:40 | XMS_ITS | Clinical Summary ---
Author Organization [facility] Address [address], [facility] [address] [place] [address] Phone Care Team Providers Care Enlisted Advisor Name Role Phone Nathan Calhoun MD Primary Care Provider [phone] Allergies No known active allergies Medications ibuprofen (MOTRIN) 200 MG Tablet Take 200 mg by mouth every 8 hours as needed (2 tabs prn). Active Omeprazole Magnesium (PRILOSEC OTC PO) Take by mouth as needed. Active acetaminophen (TYLENOL) 325 MG Tablet Take 1 Tab by mouth every 4 hours as needed for Pain or Fever (for temperature greater than 100.4 F). Do not exceed 4000 mg of acetaminophen in 24 hour from all sources. 6 Active HYDROcodone-ac etaminophen (NORCO) 5-325 MG Tablet Take 1-2 Tabs by mouth every 4 hours as needed for Pain. 40 Tab 0 6 Active prochlorperazi ne (COMPAZINE) 10 MG Tablet Take 1 Tab by mouth every 6 hours as needed for Nausea. 10 Tab 0 6 Active Fexofenadine HCl (PAWAN PO) Take by mouth. 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 Gender Identity Not on file Sexual Orientation Not on file 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 on file Not on file Not on file Last Filed Vital Signs Vital Sign Reading Time Taken Comments Blood Pressure 140/90 10/21/2015 8:44 AM CDT Pulse 88 10/21/2015 8:44 AM CDT Temperature 36.6 C (97.9 F) 10/10/2015 12:35 PM CDT Respiratory Rate 16 10/21/2015 8:44 AM CDT Oxygen Saturation 97% 10/10/2015 12:35 PM CDT Inhaled Oxygen Concentration - - Weight 103.4 kg (228 lb) 10/21/2015 8:44 AM CDT Height 177.8 cm (5' 10) 10/21/2015 8:44 AM CDT Body Mass Index 32.71 10/21/2015 8:44 AM CDT Plan of Treatment Health Maintenance Due Date Last Done Comments Hepatitis C Virus (HCV) Screening 1970 TdaP Immunization 1968 Hepatitis B Immunization (1 of 3 - 19+ 3-dose series) 1987 Colonoscopy 2013 Colorectal Cancer Screening 2013 Cologuard 2018 Immunochemical Fecal Occult Blood 2018 Pneumococcal Immunization (5 0+ years) (1 of 1 - PCV) 2018 Zoster Immunization (1 of 2) 2018 PSA Discussion 2023 Influenza Immunization (#1) 2024 SARS-COV-2 Immunization (1 - 2023-25 season) 2024 Respiratory Syncytial Virus (RSV) Immunization (Adult) (1 - 1-dose 75+ series) 2043 Meningococcal Immunization (ACWY) Aged Out No longer eligible based on patient's age to complete this topic Pneumococcal Immunization Combined Aged Out No longer eligible based on patient's age to complete this topic Rotavirus Immunization Aged Out No lo nger eligible based on patient's age to complete this topic Care Teams Enlisted Advisor Relationship Specialty Start Date End Date Nathan Calhoun MD [address] [place] [address] PCP - General Internal Medicine 08/30/15
[2024-12-15 10:48] LABS: Basophils Percent Auto 0.6 % (0.2-1.2); Eosinophils Absolute Auto 0.1 K/mm3 (0-0.3); Eosinophils Percent Auto 2.2 % (0-4.4); Hematocrit 47.2 % (42.0-52.0); Hemoglobin 15.7 g/dL (14.0-18.0); Immature Granulocyte Absolute 0.01 K/mm3 (0.00-0.031); Immature Granulocyte Percent A 0.2 % (0-0.5); Lymphocytes Absolute Auto 1.97 K/mm3 (0.9-3.2); Lymphocytes Percent Auto 30.8 % (18.3-44.2); Mean Corpuscular HGB Conc 33.3 g/dl (32-36); Mean Corpuscular Hemoglobin 29.6 pg (26-34); Mean Corpuscular Volume 88.9 fl (80-100); Mean Platelet Volume 9.6 fl (7.4-10.4); Monocytes Absolute Auto 0.7 K/mm3 (0.1-0.6); Monocytes Percent Auto 11.1 % (2.6-8.5); Neutrophils Absolute Auto 3.5 K/mm3 (1.3-6.7); Neutrophils Percent Auto 55.1 % (45.5-73.1); Platelet Count Result 261 k/mm3 (150-375); Red Blood Count 5.31 M/mm3 (4.6-6.20); Red Cell Distribution Width 12.1 % (11.5-14.5); White Blood Count 6.4 K/mm3 (4.5-10.0)
[2024-12-15 11:02] LABS: Alanine Aminotransferase 29 U/L (6-50); Alkaline Phosphatase 58 U/L (38-126); Anion Gap 9 mmol/L (4-12); Aspartate Amino Transferase 28 U/L (17-59); Bilirubin,Total 0.4 mg/dL (0.2-1.3); Blood Urea Nitrogen 19 mg/dL (9-20); Calcium 9.3 mg/dL (8.4-10.2); Carbon Dioxide 25 mmol/L (22-30); Chloride 107 mmol/L (98-107); Cholesterol 193 mg/dL (0-200); Estimated Glomerular Filt Rate > 60; Glucose 85 mg/dL (65-110); HDL Direct 52 mg/dL; Potassium 4.4 mmol/L (3.4-5.0); Sodium 141 mmol/L (137-145); Total Protein 7.7 g/dL (6.3-8.2); Triglycerides 142 mg/dL (<150)
[2024-12-15 11:14] LABS: LDL Cholesterol Direct 96 mg/dL
[2024-12-15 11:20] LABS: Free T4 Free Thyroxine 1.34 ng/dL (0.78-2.19); Vitamin D 25 Hydroxy 55.4 ng/mL
[2024-12-15 12:03] LABS: Hemoglobin A1C 4.8 % (<5.7)
== END 2024-12-15 09:38 | disposition home or self-care (01) ==
LOC: ANHLAB 09:38
PROVIDERS: PCP Internal Medicine; Visit Provider Internal Medicine
DX: E78.2 Mixed hyperlipidemia (principal); Z79.899 Other long term (current) drug therapy; Z13.1 Encounter for screening for diabetes mellitus; Z13.29 Encounter for screening for other suspected endocrine disorder; I10 Essential (primary) hypertension; E55.9 Vitamin D deficiency, unspecified; E78.5 Hyperlipidemia, unspecified
CPT/HCPCS: 36415; 80053; 80061; 82306; 83036; 84439; 84443; 85025

== ENCOUNTER 2025-05-14 00:03 | Day surgery (SDC) | payer OTHER, SELFPAY ==
--- OUTSIDE RECORDS SUMMARY | 2009-04-12 08:00 | XMS_ITS | Continuity of Care Document ---
Author Organization [facility] Address [address] [place] [address] [address] [place] [address] Phone Care Team Providers Care Health Occupations Instructor Name Role Phone Cloud OD, Sandip Unavailable Unavailable Procedures Procedure Date Eye Exam & Treatment Refraction Advance Directives Directive Yes / No Effective Date File Name No Information Encounters Encounter Description Practice Location Reason(s) For Visit Diagnoses Date Provider Providers Copied on Encounter [facility], [address] [place] [address] [address], [place], [place], [id number], [place] tel:[phone] [facility] No Information 2-200 9 Cloud OD Sandip. [address] , [address], [place], [address], [place]. tel:[phone] Family History Family Member Type Diagnosis Age At Onset No Information Payers Payer name Insurance type Covered green party ID Authorarsenioa jono(s) [facility] 09 [id number] Social History Type Description Quantity Date Captured Comments Sex Male Smoking Status No Information Chief Complaint And Reason For Visit No Information Reason For Referral Reason For Referral No Information History Of Present Illness Encounter Date Complaint History Of Prese nt Illness No Information Functional Status Date Functional Assessmen t No Information Instructions Date Instruction Additional Infor mation No Information Assessments Type Assessment Date No Information Patient Care Teams Name Effective Dates (start - stop) Status Members No Information
[2025-05-02 13:45] VITALS: BMI 30.7
--- OUTSIDE RECORDS SUMMARY | 2025-05-14 00:06 | XMS_ITS | Clinical Summary ---
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 Not on file Not on file Not [...] of 3 - 19+ 3-dose series) 1987 Cologuard 2013 Colonoscopy 2013 Colorectal Cancer Screening 2013 Immunochemical Fecal Occult Blood 2013 Pneumococcal Immunization (5 0+ years) (1 of 1 - PCV) 2018 Zoster Immunization (1 of 2) 2018 Influenza Immunization (#1) 2025 SARS-COV-2 Immunization (1 - 2023-25 season) 2025 Respiratory Syncytial Virus (RSV) Immunization (Adult) (1 - 1-dose 75+ series) 2043 Human Papillomavirus (HPV) Immunization Aged Out No longer eligible b ased on patient's age to complete this topic Meningococcal Immunization (ACWY) Aged Out No longer eligible based on patient's age to complete this topic Rotavirus Immunization Aged Out No lo nger eligible based on patient's age to complete this topic Care Teams Transfusion Aide Relationship Specialty Start Date End Date Nathan Calhoun MD [address] [place] [address] PCP - General Internal Medicine 08/30/15
--- OUTSIDE RECORDS SUMMARY | 2025-05-14 00:07 | XMS_ITS | Clinical Summary ---
Author Organization [facility] Address [address] [place] [address] Care Team Providers Care Oracle Reports Developer Name Role Phone Giuseppe Archuleta MD Primary Care Provider [phone] Allergies No known active allergies Medications fish [...] total) by mouth every morning 3 Active amLODIPine (NORVASC) 10 mg tabletIndication s:hypertension [...] for 5 days 10 capsule 4 Active Zepbound 15 mg/0.5 mL pen injector ADMINISTER 15 MG UNDER THE SKIN WEEKLY 5 Active Active Problems Problem Noted Date Diagnosed Date Rupture of right distal biceps tendon 01/19/2024 Complex tear of lateral meni scus of left knee as current injury 09/29/2018 Overview (09/29/2018): Added automatically from request for surgery [id number] Complex tear of medial menis cus of left knee as current injury 09/29/2018 Overview (09/29/2018): Added automatically from request for surgery [id number] Snoring 04/28/2013 Immunizations Immunization Administration Dates Next Due Influenza, Quadrivalent, Berta l Culture-based MDCK, Antibiotic Free, Intramuscular 04/13/2019,04/11/2019 Influenza, Quadrivalent, Berta l Culture-based MDCK, Preservative Free, Antibiotic Free, Intramuscular 04/06/2023,07/23/2021,04/30/2020 Influenza, Quadrivalent, Spl it, Preservative Free, Intramuscular 06/20/2022 Influenza, Trivalent, IM (MDV) 05/04/2013 Influenza, Trivalent, Preser vative Free, Intramuscular 04/14/2016,04/16/2015 Tdap 12/17/2024 Surgical History Surgery Date Site/Laterality Comments HYDROCELE EXCISION / REPAIR 07/12/2008 - 07/11/2009 NASAL SEPTUM SURGERY 10/10/2015 SEPTOPLASTY-TURBINATE REDUCTION; Surgeon: Mike Staley DO; Location: [facility]; Service: COLONOSCOPY 07/12/2021 - 07/11/2022 KNEE [...] on file 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 Gender Identity Not on file Sexual Orientation Not on file Last Filed Vital Signs Vital Sign Reading Time Taken Comments Blood Pressure 126/68 12/28/2024 10:38 AM CDT Pulse 73 12/28/2024 10:38 AM CDT Temperature 36.9 C (98.5 F) 12/28/2024 10:38 AM CDT Respiratory Rate 16 12/28/2024 10:38 AM CDT Oxygen Saturation 98% 12/28/2024 10:38 AM CDT Inhaled Oxygen Concentration - - Weight 100.7 kg (222 lb) 12/28/2024 10:38 AM CDT Height 177.8 cm (5' 10) 12/17/2024 2:48 PM CDT Body Mass Index 31.85 12/17/2024 2:48 PM CDT Plan of Treatment Health Maintenance Due Date Last Done Comments Depression Screening 1968 Hepatitis C Screening 1968 Prostate Cancer Screening-PSA 1968 Regular Well Visit/Exam 18-64 1986 Zoster Vaccine (1 of 2) 2018 Colon Cancer Screening-Colonoscopy 01/18/2020 01/17/2010 Covid-19 Vaccine (4 - season) 2025 07/23/2021, 10/14/2020, 09/23/2020 Influenza Vaccine (#1) 2025 3, 06/20/2022, 07/23/2021, Additional history exists DTaP/Tdap/Td Vaccine (3 - Td or Tdap) 12/17/2034 12/17/2024, 04/13/2014 Colon Cancer Screening-CT Colonography Discontinued 01/17/2010 Colon Cancer Screening-DNA Stool Discontinued 01/17/2010 Colon Cancer Screening-FIT Discontinued 01/17/2010 Colon Cancer Screening-Sigmoidoscopy Discontinued 01/17/2010 Hepatitis B Screening Completed 04/13/2014, 014 Pneumococcal vaccine <65 Aged Out No longer eligible based on patient's age to complete this topic Medical Devices Implanted Type Area Alternative Financing Specialist Device Identifier Shelf Expiration Date Model / Serial / Lot [employer] Button Drill Diamond Powder Mixer Screw Kit Arthroscopic Fixation Sterile Ar-2260 - [id number] Implanted:Qty: 1 on 01/28/2024 by Fernando Ramos MD at [facility] Right: Arm [employer] 09/08/2028 AR-2260 / / [id number] Procedures Procedure Name Priority Date/Time Associated Diagnosis Comments COLONOSCOPY 01/17/2010 12:00 AM CDT from Last 3 Months or Most Recently Relevant to Health Maintenance Results * COLONOSCOPY (01/17/2010 12:00 AM CDT) Anatomical Region Laterality Modality Other Narrative 01/17/2010 12:00 AM CDT Ordered by an unspecified provider. Procedure Note ProviderTrupti MD - 01/17/2010 12:00 AM CDT PROCEDURE REPORT Patient: ROMAN DAVILA Account: [id number] Room No: : 1970 Patient Type: OPA [...] Unremarkable. PROCEDURE: Colonoscopy was performed with a Powtoon video endoscope.On digital exam, no abnormalities were [...] of personal and familyhistory. Hector Barbosa M.D. DR/cholot TD: 01/22/2010 09:41 CC: Dr. Melo Fletcher PROCEDURE REPORT Authenticated by Hector Barbosa MD On 01/23/2010 09:18:36 AM Historical Provider ENDOSCOPY PROCEDURES Mendy l Result from Last 3 Months or Most Recently Relevant to Health Maintenance [place] [address] [place] [address] [facility] CHOICE PLUS [facility]/PP[facility] Address: [address] [address] [place] [address] [facility] Address: [address] [address] [place] [address] [facility] CHOICE PLUS [facility]/PP[facility] Address: [address] [address] [place] [address] [facility] Address: [address] [address] [place] [address] Care Teams Oracle Reports Developer Relationship Specialty Start Date End Date Giuseppe Archuleta MD [facility] - General 06/13/20
--- NOTE | 2025-05-14 06:46 | WPDANESEPPF ---
Anes - Initial Pre Proc Eval Procedure: Operation Date: 05/14/25 07:30 Proposed Procedures p Screening Colonoscopy - Lazaro Tran DO Date/Time: 05/14/25 06:46 Surgeon: Lazaro Tran DO Pre Op Diagnosis: Neoplasm screening Patient Data Age: 54 Gender: M Height: 1.78 m Weight: 97.27 kg Allergies Allergy/AdvReac Type Severity Reaction Status Date / Time nut - unspecified Allergy Severe Anaphylaxis Verified 05/14/25 06:54 scallops Allergy Severe Anaphylaxis Verified 05/14/25 06:54 Home Medications ?Medication ?Instructions ?Recorded ?Confirmed ?Type coenzyme Q10 75 mg capsule (Ultra 75 mg PO DAILY 03/13/21 05/14/25 History CoQ10) multivitamin 1 tablet PO DAILY 03/13/21 05/14/25 History aspirin 81 mg tablet 81 mg PO DAILY 09/12/21 05/14/25 History turmeric root extract 500 mg 500 mg PO DAILY 04/19/23 05/14/25 History capsule Fish Oil 1,000 units [facility] DAILY #90 caps 12/01/23 05/14/25 Rx lorazepam 1 mg tablet See Rx Instructions .Route 01/14/24 01/31/25 Rx .COMPLEX PRN anxiety #3 tabs amlodipine 10 mg tablet See Rx Instructions .Route 07/31/24 05/14/25 Rx .COMPLEX #90 tabs Magnesium/ Potassium BYMOUTH 12/18/24 01/31/25 History creatine monohydrate 1 ea PO DAILY 12/18/24 05/14/25 History tirzepatide (weight loss) 15 15 mg (0.5 mL) subcut WEEKLY #2 mL 02/06/25 05/02/25 Rx mg/0.5 mL subcutaneous pen injector (Zepbound) diclofenac sodium 75 mg See Rx Instructions .Route 05/01/25 05/02/25 Rx tablet,delayed release .COMPLEX #90 tabs losartan 50 mg tablet See Rx Instructions .Route 05/01/25 05/14/25 Rx .COMPLEX #90 tabs rosuvastatin 40 mg tablet See Rx Instructions .Route 05/01/25 05/14/25 Rx .COMPLEX #90 tabs Patient hx anesthesia problems: none Family hx anesthesia problems: none Results Review: All pre-operative results and documents have been reviewed as part of the pre-operative evaluation. [facility] Past Medical History Medical History Actinic keratosis Benign essential hypertension BMI 29.0-29.9,adult BMI 30.0-30.9,adult BMI 31.0-31.9,adult BMI 34.0-34.9,adult Cervicalgia DJD (degenerative joint disease), multiple sites Encounter for other specified surgical aftercare Encounter for other specified surgical aftercare Encounter for preventive health examination Encounter for routine adult health examination with abnormal findings Encounter for routine adult health examination without abnormal findings History of high cholesterol Hx of colonic polyps Incarcerated umbilical hernia Incarcerated ventral hernia Knee pain, left Mixed hyperlipidemia Obesity (BMI 35.0-39.9 without comorbidity) Obstructive sleep apnea On manager long term care drug therapy KAREN on CPAP Periumbilical hernia Prostate cancer screening Recurrent incisional hernia Skin tag Urticaria Weight loss Surgical History Surgical History History of hernia repair 04/25/2020: incarcerated periumbilical ventral hernia repair Status post medial meniscal repair Status post repair of hydrocele Family History Family History Father Hypertension Malignant neoplasm of prostate, Onset Age: 70 Sibling Patient's brother is in good health Mother Family history of malignant neoplasm of urinary bladder Social History Social History Smoking status: Never smoker Tobacco type: e-cigarettes/vaping Alcohol intake: current Drinks per week: 10 Alcohol use details: Daily Substance use: never Substance use type: does not use Lack of Transportation: No Lack of Food: Never True Current Housing: I Have Housing Concerned About Future Housing: No Difficulty Paying Gas/Electric Bills: No Difficulty Paying for Meds: No Currently Unemployed: No Education: Bachelor's Degree Living arrangements: with family Occupation/Education: occupation Additional occupation/education comments: [employer] Gender identity (if verbalized by the patient): Male Spiritual care concerns: No Anes - Eval Final PreProcedure Day of Procedure 05/14/25 06:46 Patient weight: obese Heart: regular rate and rhythm Lungs: clear to auscultation Airway: Mallampati scale class II Neurological: alert and oriented Last oral intake: >/= 8 hours ASA classification: III Emergent: no Anesthetic plan: proceed Anesthesia type and monitoring: general GIVS and standard monitoring Results Review: All pre-operative results and documents have been reviewed as part of the pre-operative evaluation. Informed Consent: The patient's anesthetic plan and its attendant risks and benefits were discussed with the patient/family/POA. Questions were solicited and answers provided to the satisfaction of the patient/family/POA.
[2025-05-14 06:56] VITALS: BP 117/87; PULSE 62; RESP 18; TEMP 36.4; O2SAT 99
[2025-05-14] MEDS: LACTATED RINGERS 1,000 ML 150 ML IV CONT (07:03)
--- NOTE | 2025-05-14 07:32 | P.HP_ITS ---
H&P: HPI History of Present Illness Date/Time: 05/14/25 07:32 Chief Complaint: History of colon polyps Narrative: this is a 54-year-old man who presents for colonoscopy. His last colonoscopy was 5 years ago. Polyps were removed at that time. He denies any hematochezia or melena. He denies any family history of colon cancer. Review of Systems Review of Systems: All systems reviewed & are unremarkable except as noted in HPI and below Constitutional: Constitutional: Denies chills, Denies fever(s), Denies headache(s) and Denies weight loss Eyes: Eyes: Denies change in vision ENT: Denies dizziness, Denies headache(s), Denies neck mass and Denies throat swelling Cardiovascular: Cardiovascular: Denies chest pain, Denies lightheadedness and Denies dyspnea Respiratory: Respiratory: Denies cough, Denies dyspnea and Denies wheezing Gastrointestinal: Gastrointestinal: Denies abdominal pain, Denies change in bowel habits, Denies nausea and Denies vomiting Genitourinary: Genitourinary: Denies hematuria and Denies dysuria Musculoskeletal: Musculoskeletal: Reports as per HPI Integumentary/Breasts: Skin/Breast: Reports as per HPI Neurologic: Denies dizziness and Denies headache(s) Allergic/Immunologic: Allergic/Immunologic: Denies throat swelling and Denies wheezing PMFSH Past Medical History Medical History Actinic keratosis Benign essential hypertension BMI 29.0-29.9,adult BMI 30.0-30.9,adult BMI 31.0-31.9,adult BMI 34.0-34.9,adult Cervicalgia DJD (degenerative joint disease), multiple sites Encounter for other specified surgical aftercare Encounter for other specified surgical aftercare Encounter for preventive health examination Encounter for routine adult health examination with abnormal findings Encounter for routine adult health examination without abnormal findings History of high cholesterol Hx of colonic polyps Incarcerated umbilical hernia Incarcerated ventral hernia Knee pain, left Mixed hyperlipidemia Obesity (BMI 35.0-39.9 without comorbidity) Obstructive sleep apnea On rat exterminator drug therapy KAREN on CPAP Periumbilical hernia Prostate cancer screening Recurrent incisional hernia Skin tag Urticaria Weight loss Surgical History Surgical History History of hernia repair 04/25/2020: incarcerated periumbilical ventral hernia repair Status post medial meniscal repair Status post repair of hydrocele Family History Family History Father Hypertension Malignant neoplasm of prostate, Onset Age: 70 Sibling Patient's brother is in good health Mother Family history of malignant neoplasm of urinary bladder Social History Social History Smoking status: Never smoker Tobacco type: e-cigarettes/vaping Alcohol intake: current Drinks per week: 10 Alcohol use details: Daily Substance use: never Substance use type: does not use Lack of Transportation: No Lack of Food: Never True Current Housing: I Have Housing Concerned About Future Housing: No Difficulty Paying Gas/Electric Bills: No Difficulty Paying for Meds: No Currently Unemployed: No Education: Bachelor's Degree Living arrangements: with family Occupation/Education: occupation 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[employer] Gender identity (if verbalized by the patient): Male Spiritual care concerns: No Meds Home Medications and Allergies Home Medications ?Medication ?Instructions ?Recorded ?Confirmed ?Type coenzyme Q10 75 mg capsule (Ultra 75 mg PO DAILY 03/1305/14/25 History CoQ10) multivitamin 1 tablet PO DAILY 03/13/21 1 07/14/24 History aspirin 81 mg tablet 81 mg PO DAILY 09/12/2110/03 History turmeric root extract 500 mg 500 mg PO DAILY 04/19/23 05/14/25 History capsule Fish Oil 1,000 units BYMOUTH DAILY #9 0 caps 12/01/23 05/14/25 Rx amlodipine 10 mg tablet See Rx Instructions .Route 0 07/31/24 05/14/25 Rx .COMPLEX #90 tabs Magnesium/ Potassium 1 cap BYMOUTH DAILY 12/18/24 05/14/25 History creatine monohydrate 1 ea PO DAILY 12/18/2405/14 History tirzepatide (weight loss) 15 15 mg (0.5 mL) subcut CANDIDA WARNER #2 mL 02/06/25 05/02/25 Rx mg/0.5 mL subcutaneous pen injector (Zepbound) diclofenac sodium 75 mg See Rx Instructions .Route 1 05/02/25 Rx tablet,delayed release .COMPLEX #90 tabs losartan 50 mg tablet See Rx Instructions .Route 1 05/14/25 Rx .COMPLEX #90 tabs rosuvastatin 40 mg tablet See Rx Instructions .Route 1 05/14/25 Rx .COMPLEX #90 tabs Allergies Allergy/AdvReac Type Severity Reaction Status Date / Time nut - unspecified Allergy Severe Anaphylaxis Verified 05/14/25 06:54 scallops Allergy Severe Anaphylaxis Verified 05/14/25 06:54 Vital Signs Vital Signs - 24 hr 05/14/25 06:56 Temperature 97.6 F Pulse Rate 62 Respiratory Rate 18 Blood Pressure 117/87 Pulse Oximetry 99 Oxygen Delivery Room Air Exam Const: General: no acute distress and alert Orientation/consciousness: patient oriented x3 HENMT: Head: normocephalic and atraumatic Ears: hearing grossly normal bilaterally Face/Nose/Sinus: Normal nares present Mouth: Yes Normal oral and palatal mucosa present Eyes: Periorbital: periorbital findings normal Sclera: sclerae normal EOM: EOMs intact bilaterally Neck: Neck: normal visual inspection, no lymphadenopathy and trachea midline Chest: Chest palpation & inspection: normal inspection of the chest Resp: Effort & Inspection: normal respiratory effort Auscultation: clear to auscultation bilaterally Cardio: Jugular venous distension: no JVD Rate: regular rate Rhythm: regular rhythm Heart sounds: S1 normal heart sound present and S2 normal heart sound present Peripheral pulses: Peripheral pulses 2+ throughout GI: Inspection: normal to inspection GI Palp: Yes Soft to palpation, No Tenderness to palpation present (GI), No Guarding due to palpation present (GI) and No Rebound tenderness present Percussion: Yes normal to percussion Auscultation: normal bowel sounds : General: Yes no CVA tenderness Back/Spine/Pelvis: Back: no CVA tenderness Neuro: General: patient oriented x3, no focal motor deficits and CN's II-XI intact bilaterally Cognition (Neuro): normal cognition Speech: normal speech Motor exam (neuro): 5/5 motor strength present throughout Extrem: General: capillary refill normal and no clubbing, cyanosis or edema Assessment and Plan Assessment and plan (1) Hx of colonic polyps: Code(s): Z86.010 - Personal history of colon polyps Status: Acute Assessment and Plan: I have recommended colonoscopy. I have discussed the procedure, risks, benefits, and alternatives. Questions were answered. Patient is agreeable to proceed.
[2025-05-14 08:03] VITALS: BP 107/70; PULSE 65; RESP 23; O2SAT 95
[2025-05-14 08:13] VITALS: BP 111/74; PULSE 60; RESP 25; O2SAT 98
[2025-05-14 08:23] VITALS: BP 125/81; PULSE 57; RESP 16; O2SAT 98
== END 2025-05-14 08:47 | disposition home or self-care (01) ==
PROVIDERS: PCP Internal Medicine; Visit Provider Surgery
PROC: 0DJD8ZZ Inspection of Lower Intestinal Tract, Via Natural or Artificial Opening Endoscopic (ICD-10-PCS; CPT 45378; principal; 2025-05-14 07:30)
DX: Z12.11 Encounter for screening for malignant neoplasm of colon (principal); K57.30 Diverticulosis of large intestine without perforation or abscess without bleeding; Z86.0100 Personal history of colon polyps, unspecified; E66.9 Obesity, unspecified; Z68.29 Body mass index [BMI] 29.0-29.9, adult
CPT/HCPCS: 45378; J2704; J7120

== ENCOUNTER 2025-06-05 09:16 | Outpatient (CLI) | payer OTHER, SELFPAY ==
[2025-06-05 09:54] LABS: Hemoglobin A1C 5.0 % (<5.7)
--- OUTSIDE RECORDS SUMMARY | 2025-06-05 09:57 | XMS_ITS | Clinical Summary ---
Author Organization [facility] Address [address] [place] [address] Care Team Providers Care Melter Supervisor Name Role Phone Giuseppe Archuleta MD Primary Care Provider [phone] Allergies No known active allergies Medications fish [...] (09/29/2018): Added automatically from request for surgery [id number] Complex tear of medial menis cus of left knee as current injury 09/29/2018 Overview (09/29/2018): Added automatically from request for surgery [id number] Snoring 04/28/2013 Immunizations Immunization Administration Dates Next [...] SEPTOPLASTY-TURBINATE REDUCTION; Surgeon: Mike Staley DO; Location: [facility]; Service: COLONOSCOPY 07/12/2021 - 07/11/2022 KNEE [...] on file 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 Gender Identity Not on file Sexual Orientation [...] this topic Medical Devices Implanted Type Area Drywall Finishing Foreman Device Identifier Shelf Expiration Date Model / Serial / Lot [employer] Button Drill Fraud Examiner Screw Kit Arthroscopic Fixation Sterile Ar-2260 - [id number] Implanted:Qty: 1 on 01/28/2024 by Fernando Ramos MD at [facility] Right: Arm [employer] 09/08/2028 AR-2260 / / [id number] Procedures Procedure Name Priority Date/Time Associated Diagnosis Comments COLONOSCOPY 01/17/2010 12:00 AM CDT from Last 3 Months or Most Recently Relevant to Health Maintenance Results * COLONOSCOPY (01/17/2010 12:00 AM CDT) Anatomical Region Laterality Modality Other Narrative 01/17/2010 12:00 AM CDT Ordered by an unspecified provider. Procedure Note ProviderTrupti MD - 01/17/2010 12:00 AM CDT PROCEDURE REPORT Patient: ROMAN DAVILA Account: [id number] Room No: : 1970 Patient Type: OPA [...] Unremarkable. PROCEDURE: Colonoscopy was performed with a Smarterphone video endoscope.On digital exam, no abnormalities were [...] Relevant to Health [place] [address] [address] [facility] CHOICE PLUS [facility] CHOICE PL[facility] Care Teams Melter Supervisor Relationship Specialty Start Date End Date Giuseppe Archuleta MD [facility] - General 06/13/20
--- OUTSIDE RECORDS SUMMARY | 2025-06-05 09:57 | XMS_ITS | Clinical Summary ---
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
[2025-06-05 09:59] LABS: Anion Gap 8 mmol/L (4-12); Blood Urea Nitrogen 18 mg/dL (9-20); Calcium 9.2 mg/dL (8.4-10.2); Carbon Dioxide 27 mmol/L (22-30); Chloride 103 mmol/L (98-107); Cholesterol 208 mg/dL (0-200); Estimated Glomerular Filt Rate > 60; Glucose 93 mg/dL (65-110); HDL Direct 64 mg/dL; Potassium 4.2 mmol/L (3.4-5.0); Sodium 138 mmol/L (137-145); Triglycerides 134 mg/dL (<150)
[2025-06-05 10:34] LABS: Prostate Specific Antigen 1.9 ng/mL (< OR = 4.0)
== END 2025-06-05 09:17 | disposition home or self-care (01) ==
LOC: ANHLAB 09:17
PROVIDERS: PCP Internal Medicine; Visit Provider Internal Medicine
DX: Z12.5 Encounter for screening for malignant neoplasm of prostate (principal); Z13.1 Encounter for screening for diabetes mellitus; R97.20 Elevated prostate specific antigen [PSA]; E78.2 Mixed hyperlipidemia; I10 Essential (primary) hypertension; Z79.899 Other long term (current) drug therapy
CPT/HCPCS: 36415; 80048; 80061; 83036; 84153; G0103